=== PATIENT | male | born 1970 | race Caucasian/White ===

== ENCOUNTER 2017-03-25 22:15 | Emergency (ER) | payer OTHER ==
[~2017-03-25] VITALS: Ht 172.7 cm; Wt 229.6 kg
[2017-03-25 22:15] VITALS: TEMP 37.2; Ht 172.7 cm; Wt 229.6 kg
[2017-03-25] MEDS ORDERED: LISI-729 PO (22:36)
[2017-03-25] MEDS ORDERED: ATOR-22 PO (22:36)
[2017-03-25] MEDS ORDERED: TRAZ100T29 PO (22:36)
[2017-03-25] MEDS ORDERED: PRLSR20 PO (22:36)
[2017-03-25] MEDS ORDERED: GLC/500 PO (22:36)
[2017-03-25] MEDS ORDERED: DULO60CA44 PO (22:36)
[2017-03-25] MEDS ORDERED: AMT50 PO (22:36)
[2017-03-25] MEDS ORDERED: TOPI25TA99 PO (22:36)
[2017-03-25] MEDS ORDERED: SYN75 PO (22:36)
[2017-03-25] MEDS ORDERED: SITA100T3 PO (22:36)
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
[2017-03-26 00:48] VITALS: BP 164/114; PULSE 105; O2SAT 95
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
== END 2017-03-26 00:44 | disposition home or self-care (01) ==
LOC: C.EDA 22:18
DX: M54.2 Cervicalgia (principal); R51 Headache; V49.50XA Passenger injured in collision with unspecified motor vehicles in traffic accident, initial encounter; Y92.488 Other paved roadways as the place of occurrence of the external cause; F17.200 Nicotine dependence, unspecified, uncomplicated; E66.01 Morbid (severe) obesity due to excess calories; Z79.84 Long term (current) use of oral hypoglycemic drugs